=== PATIENT | male | born 1940 | race Caucasian/White ===

== ENCOUNTER 2016-04-13 11:49 | Emergency (ER) | payer MEDICARE, MEDICAID ==
[2016-04-13] MEDS ORDERED: Sodium Chloride 0.9% 1,000 ML IV SCH (12:00)
--- NOTE | 2016-04-13 12:02 | EDM.PDOC ---
ED HPI NEURO - General Stated Complaint: [facility] Time Seen by Provider: 04/13/16 11:50 Source of Information: Reports: Patient, EMS History Limitations: Reports: Altered mental status - History of Present Illness INITIAL COMMENTS - FREE TEXT/NARRATIVE: Patient is a 76 year old male who presents to the E.D. with concerns of having a stroke. Patient was at [facility] being prepared for CT. IV was started and patient became dizzy, pale, and stated he had increased SOB. Patient passed out for a short period of time. 911 was contacted and ambulance arrived transporting patient to the E.D. We have no PMH or current medication list. 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: Other (see below) (none stated) - Related Data Allergies/ADRs: Allergies Allergy/AdvReac Type Severity Reaction Status Date / Time No Known Allergies Allergy Verified 04/13/16 12:07 Home Meds: Home Meds Acetaminophen [Tylenol] 325 mg PO Q4H PRN 04/13/16 [History] Aspirin 81 mg PO DAILY 04/13/16 [History] B Complex With Vitamin C [Vitamin B-Complex with Vit C] 1 each PO DAILY [History] Escitalopram [Lexapro] 10 mg PO DAILY 04/13/16 [History] Fluticasone/Salmeterol [Advair 250-50 Diskus] 1 puff INH BID 04/13/16 [History] Folic Acid 1 mg PO DAILY 04/13/16 [History] Latanoprost [Xalatan] 1 drop OP BEDTIME 04/13/16 [History] Memantine HCl [Namenda] 10 mg PO DAILY 04/13/16 [History] Multivitamin [Multi-Vitamin Daily] 1 tab PO DAILY 04/13/16 [History] Omeprazole Magnesium [Prilosec Otc] 1 tab PO DAILY 04/13/16 [History] atorvaSTATin [Lipitor] 20 mg PO BEDTIME 04/13/16 [History] carBAMazepine [Tegretol] 1 tab PO DAILY 04/13/16 [History] levETIRAcetam [Keppra] 500 mg PO BID 04/13/16 [History] ED ROS GENERAL - Review of Systems Review Of Systems: See Below Constitutional: Reports: no symptoms HEENT: Reports: No symptoms Respiratory: Denies: shortness of breath, cough, sputum Cardiovascular: Reports: Syncope. Denies: Chest pain, Dyspnea on exertion, Lightheadedness, Palpitations GI/Abdominal: Denies: Abdominal pain, Black stool, Bloody stool, Constipation, Diarrhea, Decreased appetite, Distension, Hematemesis, Melena, Nausea, Stool incontinence, Vomiting : Denies: dysuria, incontinence, pain Musculoskeletal: Denies: neck pain, back pain Neurological: Reports: trouble speaking, change in speech (slurred). Denies: dizziness, headache, numbness, tingling ED EXAM, NEURO - Physical Exam Exam: See Below Exam Limited By: Altered mental status General Appearance: alert, WD/WN, no apparent distress Eye Exam: bilateral eye: EOMI, PERRL Ears: hearing grossly normal Nose: normal inspection Throat/Mouth: Normal voice, No airway compromise, Other ( slurred speech.) Head Exam: other (Facial droop left side) Neck: normal inspection, supple. No: carotid bruit (no obvious) Respiratory/Chest: no respiratory distress, lungs clear, normal breath sounds, no accessory muscle use, chest non-tender Cardiovascular: normal peripheral pulses, regular rate, rhythm, no murmur GI/Abdominal: normal bowel sounds, soft, non tender, no organomegaly, no distention Neurological: alert, normal dorsiflexion, normal plantar flexion, no motor/ sensory deficits, other (slurred speech with left-sided facial droop. No weakness noted to the right hand. No arm drift noted. No weakness to the lower extremities. Missing left arm.). No: oriented x 3 (x2) Course - Vital Signs Last Recorded V/S: Last Vital Signs Temp 97.8 F 04/13/16 12:17 Pulse 69 04/13/16 15:55 Resp 14 04/13/16 15:55 BP 112/66 04/13/16 15:55 Pulse Ox 98 04/13/16 15:55 - Orders/Labs/Meds Orders: Active Orders 24 hr Category Date Time Status EKG Documentation Completion [RC] STAT Care 04/13/16 11:54 Active Labs: Laboratory Tests 04/13/16 04/13/16 04/13/16 Range/Units 12:34 12:34 12:34 WBC 8.60 (4.23-9.07) K/mm3 RBC 4.54 L (4.63-6.08) M/mm3 Hgb 13.5 L (13.7-17.5) gm/L Hct 42.9 (40.1-51.0) % MCV 94.5 H (79.0-92.2) fl MCH 29.7 (25.7-32.2) pg MCHC 31.5 L (32.2-35.5) g/dl RDW Std Deviation 46.2 H (35.1-43.9) fL Plt Count 224 (163-337) K/mm3 MPV 9.7 (9.4-12.3) fl Neut % (Auto) 77.8 H (34.0-67.9) % Lymph % (Auto) 11.9 L (21.8-53.1) % [place] % (Auto) 8.5 (5.3-12.2) % Eos % (Auto) 1.4 (0.8-7.0) Baso % (Auto) 0.2 (0.1-1.2) % Neut # 6.69 H (1.78-5.38) K/mm3 Lymph # 1.02 L (1.32-3.57) K/mm3 [place] # 0.73 (0.30-0.82) K/mm3 Eos # 0.12 (0.04-0.54) K/mm3 Baso # 0.02 (0.01-0.08) K/mm3 PT 12.7 (8.0-13.0) SECONDS INR 1.15 APTT (22-36) SECONDS Sodium 139 (136-145) mEq/L Potassium 4.7 (3.5-5.1) mEq/L Chloride 105 (98-107) mEq/L Carbon Dioxide 25 (21-32) mEq/L Anion Gap 13.7 (5-15) BUN 10 (7-18) mg/dL Creatinine 0.9 (0.7-1.3) mg/dL Est Cr Clr Drug Dosing 69.83 mL/min Estimated GFR (MDRD) > 60 (>60) mL/min BUN/Creatinine Ratio 11.1 L (14-18) Glucose 109 (83-115) mg/dL Calcium 9.0 (8.5-10.1) mg/dL Total Bilirubin 0.2 (0.2-1.0) mg/dL AST 28 (15-37) U/L ALT 41 (16-63) U/L Alkaline Phosphatase 150 H (46-116) U/L Troponin I < 0.017 (0.00-0.056) ng/mL C-Reactive Protein 5.8 H* (<1.0) mg/dL Total Protein 7.2 (6.4-8.2) g/dl Albumin 2.8 L (3.4-5.0) g/dl Globulin 4.4 gm/dL Albumin/Globulin Ratio 0.6 L (1-2) TSH 3rd Generation 2.349 (0.358-3.74) uIU/mL Urine Color (Yellow) Urine Appearance (Clear) Urine pH (5.0-8.0) Ur Specific [place] (1.005-1.030) Urine Protein (Negative) Urine Glucose (UA) (Negative) Urine Ketones (Negative) Urine Occult Blood (Negative) Urine Nitrite (Negative) Urine Bilirubin (Negative) Urine Urobilinogen (0.2-1.0) Ur Leukocyte Esterase (Negative) Urine RBC (0-5) /hpf Urine WBC (0-5) /hpf Ur Epithelial Cells (0-5) /hpf Urine Bacteria (FEW) /hpf Urine Mucus (FEW) /hpf Urine Opiates Screen (NEGATIVE) Ur Buprenorphine Scrn (NEGATIVE) Ur Oxycodone Screen (NEGATIVE) Urine Methadone Screen (NEGATIVE) Ur Propoxyphene Screen (NEGATIVE) Ur Barbiturates Screen (NEGATIVE) Ur Tricyclics Screen (NEGATIVE) Ur Phencyclidine Scrn (NEGATIVE) Ur Amphetamine Screen (NEGATIVE) U Methamphetamines Scrn (NEGATIVE) U Benzodiazepines Scrn (NEGATIVE) U Cocaine Metab Screen (NEGATIVE) U Marijuana (THC) Screen (NEGATIVE) Ethyl Alcohol 0.00 (0.00) gm% 04/13/16 04/13/16 04/13/16 Range/Units 12:34 12:57 12:57 WBC (4.23-9.07) K/mm3 RBC (4.63-6.08) M/mm3 Hgb (13.7-17.5) gm/L Hct (40.1-51.0) % MCV (79.0-92.2) fl MCH (25.7-32.2) pg MCHC (32.2-35.5) g/dl RDW Std Deviation (35.1-43.9) fL Plt Count (163-337) K/mm3 MPV (9.4-12.3) fl Neut % (Auto) (34.0-67.9) % Lymph % (Auto) (21.8-53.1) % [place] % (Auto) (5.3-12.2) % Eos % (Auto) (0.8-7.0) Baso % (Auto) (0.1-1.2) % Neut # (1.78-5.38) K/mm3 Lymph # (1.32-3.57) K/mm3 [place] # (0.30-0.82) K/mm3 Eos # (0.04-0.54) K/mm3 Baso # (0.01-0.08) K/mm3 PT (8.0-13.0) SECONDS INR APTT 27 (22-36) SECONDS Sodium (136-145) mEq/L Potassium (3.5-5.1) mEq/L Chloride (98-107) mEq/L Carbon Dioxide (21-32) mEq/L Anion Gap (5-15) BUN (7-18) mg/dL Creatinine (0.7-1.3) mg/dL Est Cr Clr Drug Dosing mL/min Estimated GFR (MDRD) (>60) mL/min BUN/Creatinine Ratio (14-18) Glucose (83-115) mg/dL Calcium (8.5-10.1) mg/dL Total Bilirubin (0.2-1.0) mg/dL AST (15-37) U/L ALT (16-63) U/L Alkaline Phosphatase (46-116) U/L Troponin I (0.00-0.056) ng/mL C-Reactive Protein (<1.0) mg/dL Total Protein (6.4-8.2) g/dl Albumin (3.4-5.0) g/dl Globulin gm/dL Albumin/Globulin Ratio (1-2) TSH 3rd Generation (0.358-3.74) uIU/mL Urine Color Yellow (Yellow) Urine Appearance Clear (Clear) Urine pH 5.5 (5.0-8.0) Ur Specific [place] 1.015 (1.005-1.030) Urine Protein Negative (Negative) Urine Glucose (UA) Negative (Negative) Urine Ketones Negative (Negative) Urine Occult Blood Negative (Negative) Urine Nitrite Negative (Negative) Urine Bilirubin Negative (Negative) Urine Urobilinogen 0.2 (0.2-1.0) Ur Leukocyte Esterase Negative (Negative) Urine RBC Not seen (0-5) /hpf Urine WBC 0-5 (0-5) /hpf Ur Epithelial Cells Not seen (0-5) /hpf Urine Bacteria Not seen (FEW) /hpf Urine Mucus Few (FEW) /hpf Urine Opiates Screen Negative (NEGATIVE) Ur Buprenorphine Scrn Negative (NEGATIVE) Ur Oxycodone Screen Negative (NEGATIVE) Urine Methadone Screen Negative (NEGATIVE) Ur Propoxyphene Screen Negative (NEGATIVE) Ur Barbiturates Screen Negative (NEGATIVE) Ur Tricyclics Screen Negative (NEGATIVE) Ur Phencyclidine Scrn Negative (NEGATIVE) Ur Amphetamine Screen Negative (NEGATIVE) U Methamphetamines Scrn Negative (NEGATIVE) U Benzodiazepines Scrn Negative (NEGATIVE) U Cocaine Metab Screen Negative (NEGATIVE) U Marijuana (THC) Screen Negative (NEGATIVE) Ethyl Alcohol (0.00) gm% Meds: Medications Discontinued Medications Generic Name Dose Route Start Last Admin Trade Name Freq PRN Reason Stop Dose Admin Sodium Chloride 1,000 mls @ 75 mls/hr 04/13/16 12:00 04/13/16 13:02 Normal Saline IV 75 mls/hr ASDIRECTED [facility] Administration - Re-Assessments/Exams Free Text/Narrative Re-Assessment/Exam: Stroke alert was called. Patient had a syncopal episode while IV was being started at [facility] prior to obtaining CT scan. Patient was transported to the ED via ambulance. Upon arrival patient is alert oriented to person and year. He has no complaints at this time. Patient has left sided lip droop with no loss of nasolabial fold, patient has no teeth, questionable slurred speech, with no weakness noted to the right upper extremity or lower extremities bilaterally. CT of the head without contrast was obtained. Initial labs include CBC, chem 14 , troponin, CRP, TSH, PT/INR, PTT, EKG, one view chest x-ray, serum EtOH, UA, and urine drug tox. I have asked nursing staff to be contact [facility] to obtain further history and why he was having CT obtained. Patient is a poor historian and does not recall events prior and after event. We have no PMH or current medication list. 04/13/16 12:[address] impression: No acute intracranial abnormality is identified. EKG revealed sinus rhythm at a rate of [address] changes noted. Labs reviewed. WBC WNL, CMP essentially normal, CRP 5.8 unknown cause, troponin wnl, TSH WNL. 04/13/16 12:33 Reassessment, patient sitting up eyes are open any is talking more clearly. Still does not recall events leading up to him be admitted to the ED. Denies any complaints at this time. Denies any history of TIA or strokelike symptoms. States he has a history of passing out. Nursing staff was able to speak to the page technician at [facility]. Patient was having a CT of his chest with IV contrast per routine followup of a pulmonary nodule. IV was started and the patient became dizzy, pale, and stated he had increased SOB. Patient passed out for a short period of time. He does have a history of seizures and take keppra. Unclear if this was seizure related. Patient has no trauma to tongue (no teeth present) and is not incontinent to urine/stool. Appears recent event maybe associated to vaso-vagal syncope. Discussed with Dr. Chang and he agrees. 04/13/16 12:46 CT of the head without contrast impression: No acute intracranial abnormality is identified. X-ray of the chest nothing acute is identified per portable chest x-ray. 04/13/16 13:21 Reassessment, patient is sitting up in bed. Facial droop left lip. Patient has no upper teeth. No loss of nasolabial fold to left side noted. Patient is hungry. Will get a food tray for the patient. 04/13/16 15:32 UA was negative for infection. Urine drug toxicology is negative. Patient is wishing to be discharged home will get patient back up and see how he does. Discharge instructions as documented for seizure and vasovagal episodes. Departure - Departure Time of Disposition: 15:32 Disposition: Home, Self-Care 01 Condition: good Clinical Impression: Vaso vagal episode, Seizure disorder, Elevated C-reactive protein (CRP) Anemia Qualifiers: Anemia type: unspecified type Qualified Code(s): D64.9 - Anemia, unspecified Instructions: Seizure, Adult, [id number] Referrals: Ankit Caldera MD [Primary Care Provider] - Forms: ED Department Discharge Additional Instructions: Cause of recent maybe associated to vasovagal episode or seizure. Continue taking all home medications as prescribed. Please followup with PCP in the next 3 to 5 days for further evaluation. Return to the E.D. as needed for SOB, CP, N/V, or any neurological deficits. - My Orders Last 24 Hours: My Active Orders 04/13/16 11:54 EKG Documentation Completion [RC] STAT - Assessment/Plan Last 24 Hours: My Active Orders 04/13/16 11:54 EKG Documentation Completion [RC] STAT
--- NOTE | 2016-04-13 12:22 | CT ---
Head CT Technique: Multiple axial sections through the brain were obtained. Intravenous contrast was not utilized. Comparison: Previous head CT study of 07/11/10 is available. Findings: Ventricles along with basal cisterns and sulci over the convexities are moderately prominent. Atrophy includes the cerebellum. Diminished density is seen within portions of the periventricular white matter compatible with small vessel ischemic demyelination change. No other abnormal parenchymal densities are seen. No evidence of intracranial hemorrhage. No midline shift or mass effect is seen. Bone window settings were reviewed which shows the visualized mastoid sinuses and middle ear cavities to appear clear. Paranasal sinuses that are seen also appears clear. No acute calvarial abnormality is identified. Impression: 1. Senescent change as described above. 2. No acute intracranial abnormality is identified. Diagnostic code #2
--- NOTE | 2016-04-13 12:43 | CR ---
Chest: Portable view of the chest was obtained. Comparison: Previous chest x-ray of 07/24/10. Heart size at the upper limits of normal. Mild tortuosity of the thoracic aorta is seen. Lungs are clear. Old bilateral rib fractures are seen which appear to be healed. Bony structures are osteopenic. Chronic left acromioclavicular separation is noted. Impression: 1. Incidental findings. Nothing acute is identified on portable chest x-ray. Diagnostic code #2
[2016-04-13 17:36] VITALS: BP 112/66
== END 2016-04-13 15:55 | disposition home or self-care (01) ==
LOC: JD.ED 11:49 → SUPCPDRO 11:49 → JD.ED 15:55
DX: Z79.82 Long term (current) use of aspirin (principal); G40.909 Epilepsy, unspecified, not intractable, without status epilepticus; R55 Syncope and collapse; D64.9 Anemia, unspecified; R79.82 Elevated C-reactive protein (CRP); Z79.899 Other long term (current) drug therapy
CPT/HCPCS: 36415; 70450; 71010; 80053; 80306; 81001; 84443; 84484; 85025; 85610; 85730; 86140; 93005; 96360; 96361; 99285; G0480; J7040

== ENCOUNTER 2017-03-23 04:35 | Emergency (ER) | payer MEDICARE, MEDICAID ==
[2017-03-23 04:45] VITALS: BP 125/81
--- NOTE | 2017-03-23 05:33 | EDM.PDOC ---
ED HPI GENERAL MEDICAL PROBLEM - General Chief Complaint: Abdominal Pain Stated Complaint: [facility] Time Seen by Provider: 03/23/17 04:51 Source of Information: Reports: Patient History Limitations: Reports: Altered Mental Status - History of Present Illness INITIAL COMMENTS - FREE TEXT/NARRATIVE: The patient states that he has had left lower quadrant abdominal pain on and off for the past week. He is unable to describe its character. He denies having back or flank pain. No recent fever. No recent dysuria. No recent dyspnea. No prior similar symptoms. The patient states that he is not experiencing any pain at this time. Here in the ED, the patient's oxygen saturation is noted to be 88% on room air. Patient indicates that he has had this before, and was prescribed oxygen, but that he did not like to wear it. The patient's PCP is Dr. Shin. Left Abdomen Pain Score (Numeric/FACES): 5 - Related Data Allergies Allergy/AdvReac Type Severity Reaction Status Date / Time Penicillins Allergy Cannot Verified 03/23/17 05:11 Remember vancomycin Allergy Cannot Verified 03/23/17 05:11 Remember Home Meds: Home Meds Aspirin 81 mg PO DAILY 04/13/16 [History] Folic Acid 1 mg PO DAILY 04/13/16 [History] Memantine HCl [Namenda] 10 mg PO BID 04/13/16 [History] Multivitamin [Multi-Vitamin Daily] 1 tab PO DAILY 04/13/16 [History] Omeprazole Magnesium [Prilosec Otc] 1 tab PO DAILY 04/13/16 [History] atorvaSTATin [Lipitor] 20 mg PO BEDTIME 04/13/16 [History] carBAMazepine [Tegretol] 300 tab PO BID 04/13/16 [History] levETIRAcetam [Keppra] 500 mg PO BID 04/13/16 [History] Escitalopram [Lexapro] 10 mg PO DAILY 03/23/17 [History] Past Medical History HEENT History: Reports: Glaucoma Cardiovascular History: Reports: Aneurysm (AAA), CAD, High Cholesterol Respiratory History: Reports: COPD Gastrointestinal History: Reports: Diverticulosis, GERD Neurological History: Reports: Alzheimers Disease, Brain Injury, Seizure Psychiatric History: Reports: Addiction - Past Surgical History Cardiovascular Surgical History: Reports: Other (See Below) (Aortoiliac stent) Musculoskeletal Surgical History: Reports: Other (See Below) (Left midhumerus amputation) Social & Family History - Family History Family Medical History: Noncontributory - Tobacco Use Smoking Status *Q: Never Smoker Month Tobacco Last Used: 03/23 Second Hand Smoke Exposure: No - Caffeine Use Caffeine Use: Reports: None - Alcohol Use Alcohol Use History: Yes - Recreational Drug Use Recreational Drug Use: No - Living Situation & Occupation Living situation: Reports: Single, Alone Occupation: Retired ED ROS GENERAL - Review of Systems Review Of Systems: ROS reveals no pertinent complaints other than HPI. ED EXAM, GI/ABD - Physical Exam Exam: See Below Exam Limited By: No Limitations General Appearance: Alert, WD/WN, No Apparent Distress Eyes: Bilateral: Normal Appearance, EOMI Ears: Normal External Exam, Hearing Grossly Normal Nose: Normal Inspection, No Blood Throat/Mouth: Normal Inspection, Normal Lips, Normal Voice, No Airway Compromise Head: Atraumatic, Normocephalic Neck: Normal Inspection, Full Range of Motion Respiratory/Chest: No Respiratory Distress, Lungs Clear, Normal Breath Sounds, No Accessory Muscle Use Cardiovascular: Normal Peripheral Pulses, Regular Rate, Rhythm, No Gallop, No JVD, No Murmur, No Rub GI/Abdominal Exam: Normal Bowel Sounds, Soft, No Organomegaly, No Distention, No Abnormal Bruit, No Mass, Pelvis Stable, Tender (Left lower quadrant only. Nontender elsewhere.), Other (The patient denies abdominal pain when the abdomen is not being palpated) (Male) Exam: Deferred Rectal (Males) Exam: Deferred Back Exam: Normal Inspection, Full Range of Motion, NT Extremities: Normal Range of Motion, No Pedal Edema, Normal Capillary Refill, Other (Left midhumerus application) Neurological: Alert, No Motor/Sensory Deficits Psychiatric: Normal Affect Skin Exam: Warm, Dry, Intact, Normal Color, No Rash Course - Vital Signs Last Recorded V/S: Last Vital Signs Temp 36.7 C 03/23/17 04:37 Pulse 119 H 03/23/17 04:37 Resp 27 H 03/23/17 04:37 BP 125/81 03/23/17 04:37 Pulse Ox 87 L 03/23/17 04:37 - Orders/Labs/Meds Orders: Active Orders 24 hr Category Date Time Status Sodium Chloride 0.9% [Normal Saline] 1,000 ml Med 03/23/17 05:45 Active IV ASDIRECTED Medication Orders Sodium Chloride (Normal Saline) 1,000 mls @ 150 mls/hr IV ASDIRECTED [place] Last Admin: 03/23/17 06:00 Dose: 150 mls/hr Labs: Laboratory Tests 03/23/17 03/23/17 03/23/17 Range/Units 06:01 06:01 06:25 WBC 13.88 H (4.23-9.07) K/mm3 RBC 4.50 L (4.63-6.08) M/mm3 Hgb 14.2 (13.7-17.5) gm/L Hct 44.0 (40.1-51.0) % MCV 97.8 H (79.0-92.2) fl MCH 31.6 (25.7-32.2) pg MCHC 32.3 (32.2-35.5) g/dl RDW Std Deviation 49.2 H (35.1-43.9) fL Plt Count 167 (163-337) K/mm3 MPV 10.6 (9.4-12.3) fl Neutrophils % (Manual) 66 H (40-60) % Band Neutrophils % 24 H (0-10) % Lymphocytes % (Manual) 7 L (20-40) % Atypical Lymphs % 0 % Monocytes % (Manual) 3 (2-10) % Eosinophils % (Manual) 0 L (0.8-7.0) % Basophils % (Manual) 0 L (0.2-1.2) Platelet Estimate Adequate RBC Morph Comment Normal Sodium 145 (136-145) mEq/L Potassium 4.0 (3.5-5.1) mEq/L Chloride 113 H (98-107) mEq/L Carbon Dioxide 23 (21-32) mEq/L Anion Gap 13.0 (5-15) BUN 12 (7-18) mg/dL Creatinine 1.2 (0.7-1.3) mg/dL Est Cr Clr Drug Dosing 51.55 mL/min Estimated GFR (MDRD) 59 (>60) mL/min BUN/Creatinine Ratio 10.0 L (14-18) Glucose 121 H (83-115) mg/dL Calcium 8.6 (8.5-10.1) mg/dL Total Bilirubin 0.4 (0.2-1.0) mg/dL AST 25 (15-37) U/L ALT 33 (16-63) U/L Alkaline Phosphatase 113 (46-116) U/L Total Protein 6.5 (6.4-8.2) g/dl Albumin 3.0 L (3.4-5.0) g/dl Globulin 3.5 gm/dL Albumin/Globulin Ratio 0.9 L (1-2) Lipase 69 L (73-393) U/L Urine Color Yellow (Yellow) Urine Appearance Clear (Clear) Urine pH 6.0 (5.0-8.0) Ur Specific [place] > or = 1.030 (1.005-1.030) Urine Protein Trace H (Negative) Urine Glucose (UA) Negative (Negative) Urine Ketones Negative (Negative) Urine Occult Blood Negative (Negative) Urine Nitrite Negative (Negative) Urine Bilirubin Negative (Negative) Urine Urobilinogen 0.2 (0.2-1.0) Ur Leukocyte Esterase Negative (Negative) Urine RBC Not seen (0-5) /hpf Urine WBC 0-5 (0-5) /hpf Ur Epithelial Cells 0-5 (0-5) /hpf Urine Bacteria Few (FEW) /hpf Urine Mucus Many H (FEW) /hpf Meds: Medications Generic Name Dose Route Start Last Admin Trade Name Freq PRN Reason Stop Dose Admin Sodium Chloride 1,000 mls @ 150 mls/hr 03/23/17 05:45 03/23/17 06:00 Normal Saline IV 150 mls/hr ASDIRECTED [place] Administration Discontinued Medications Generic Name Dose Route Start Last Admin Trade Name Freq PRN Reason Stop Dose Admin Diatrizoate Meglum/Diatrizoate Sod 90 ml 03/23/17 06:57 03/23/17 08:13 Gastrografin 37% PO 03/23/17 06:58 90 ml ONETIME ONE Administration Iopamidol 100 ml 03/23/17 06:57 03/23/17 08:13 [id number] (76%) IVPUSH 03/23/17 06:58 100 ml ONETIME ONE Administration - Re-Assessments/Exams Free Text/Narrative Re-Assessment/Exam: 03/23/17 05:33 The patient has mild tenderness to palpation of the left lower quadrant, however , is pain-free when the abdomen is not being palpated. He also denies nausea at this time. I have therefore not ordered any pain medication or antiemetics at this time, however, should the patient's condition change, I can reassess. 03/23/17 09:15 CT of the abdomen and pelvis with oral and IV contrast is read by Dr. Ramirez as: 1. Parenchymal density within the left base most likely due to combination of atelectasis and fibrosis although difficult to exclude small area of pneumonia if patient has correlating symptoms. 2. Aortoiliac stent within an abdominal aortic aneurysm. No contrast is seen to extravasate outside stent into the aneurysm. 3. Diverticulosis without diverticulitis. 4. Other incidental findings. 03/23/17 09:22 Test results discussed with one of the patient's caregivers. Today's workup is remarkable for a WBC count elevated at 13.85 with 24% bandemia, however, no infection was found on today's workup, and no expiration for the patient's left lower quadrant abdominal pain. I'm recommending [id number] Tylenol or ibuprofen as needed for discomfort, however, I would also like the patient to follow-up with his PCP, Dr. Shin, this coming week. The patient's caregiver has agreed. Departure - Departure Time of Disposition: 09:23 Disposition: Home, Self-Care 01 Condition: Good Clinical Impression: Left lower quadrant abdominal pain of unknown etiology, Leukocytosis - Discharge Information Referrals: Phil Shin MD [Primary Care Provider] - Forms: ED Department Discharge Additional Instructions: Mr. Jenkins was seen in the ER for lower left abdominal pain. Workup in the ER included blood work, a urinalysis, and a CT scan of his abdomen and pelvis. His WBC count was elevated at 13.88, with 24% bandemia. This suggests an infection, however, no infection was found. The CT scan of his abdomen and pelvis was, for the most part, unremarkable. We recommend he be given [id number] Tylenol or ibuprofen as needed for discomfort. He should follow-up with his PCP, Dr. Shin, this coming week. If any other problems, please do not hesitate to return Mr. Jenkins to the ER. - My Orders Last 24 Hours: My Active Orders 03/23/17 05:45 Sodium Chloride 0.9% [Normal Saline] 1,000 ml IV ASDIRECTED - Assessment/Plan Last 24 Hours: My Active Orders 03/23/17 05:45 Sodium Chloride 0.9% [Normal Saline] 1,000 ml IV ASDIRECTED
[2017-03-23] MEDS: Sodium Chloride 0.9% 1,000 ML IV SCH (06:00)
[2017-03-23] MEDS: Diatrizoate Meglumine/Diatrizoate Sodium 37% 120 ML Bottle PO ONE (08:13)
[2017-03-23] MEDS: Iopamidol 755 Mg/ML 100 ML Bottle IVPUSH ONE (08:13)
--- NOTE | 2017-03-23 09:13 | CT ---
CT abdomen and pelvis Technique: Multiple axial sections were obtained from above the dome of the diaphragm inferiorly through the pubic symphysis. Intravenous and oral contrast was utilized. Delayed images were also obtained through the abdomen and pelvis. Comparison: Prior CT chest and abdomen exam of 06/21/10. Findings: Visualized lung bases shows patchy increased density within the left base. Findings may represent a combination of atelectasis and fibrosis although difficult to completely exclude a pneumonia. Nodular areas of pleural thickening are seen within the diaphragmatic pleura on the right side. Liver shows no focal parenchymal abnormality. Spleen appears within normal limits. Adrenal glands show no nodule. Gallbladder contains no calcified gallstones. Several cysts are seen within the right kidney which appear stable from previous exam. Largest cyst measures about 5.2 cm in size. Pancreas is within normal limits. Aorta shows an aneurysm. Aortoiliac stent is seen within the aneurysm. No extravasation of contrast is seen outside the stent into the aneurysm. Diverticulosis is noted within the sigmoid colon without diverticulitis. No pelvic mass or adenopathy is seen. Appendix is seen which is normal. Delayed images shows contrast within the ureters without obstruction as well as contrast within the bladder. No bowel dilatation is seen. Bone window settings were reviewed which shows disc space narrowing and vacuum phenomena at L4-L5. Mild scattered endplate osteophytes are seen within the spine. Impression: 1. Parenchymal density within the left base most likely due to combination of atelectasis and fibrosis although difficult to exclude small area of pneumonia if patient has correlating symptoms. 2. Aortoiliac stent within an abdominal aortic aneurysm. No contrast is seen to extravasate outside the stent into the aneurysm. 3. Diverticulosis without diverticulitis. 4. Other incidental findings. Diagnostic code #3
== END 2017-03-23 09:45 | disposition home or self-care (01) ==
LOC: JD.ED 04:35
DX: R10.32 Left lower quadrant pain (principal); D72.829 Elevated white blood cell count, unspecified; Z88.0 Allergy status to penicillin; Z88.1 Allergy status to other antibiotic agents; Z79.82 Long term (current) use of aspirin; Z79.899 Other long term (current) drug therapy
CPT/HCPCS: 36415; 74177; 80053; 81001; 83690; 85025; 96360; 96361; 99285; J7040; Q9963; Q9967

== ENCOUNTER 2017-10-01 19:55 | Emergency (ER) | payer MEDICARE, MEDICAID ==
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
[2017-10-01 22:09] VITALS: BP 136/57
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
--- NOTE | 2017-10-03 08:07 | CR ---
Chest: AP and lateral views of the chest were obtained. Comparison: Prior chest x-ray of 04/13/16. Heart size at the upper limits of normal. Tortuous thoracic aorta is seen. Slight scarring is noted within the left upper chest. No acute parenchymal change is seen. Diaphragms are flattened on the lateral view suggesting emphysematous change. Scattered degenerative change is noted within the spine. Stent is noted within the abdominal aorta. Old bilateral rib fractures are seen. Impression: 1. Probable emphysematous change. 2. Other incidental findings. Nothing acute is suspected. Diagnostic code #2
== END 2017-10-01 22:05 | disposition home or self-care (01) ==
LOC: JD.ED 19:55
DX: R55 Syncope and collapse (principal); J44.9 Chronic obstructive pulmonary disease, unspecified; E78.00 Pure hypercholesterolemia, unspecified; Z88.0 Allergy status to penicillin; Z88.1 Allergy status to other antibiotic agents; Z79.899 Other long term (current) drug therapy; Z79.82 Long term (current) use of aspirin; Z87.891 Personal history of nicotine dependence
CPT/HCPCS: 36415; 71046; 71046-26; 80053; 84484; 85025; 93005; 99283; 99285-25

== ENCOUNTER 2017-10-02 14:34 | Inpatient (IN) | payer MEDICARE, MEDICAID ==
[2017-10-02] MEDS ORDERED: Sodium Chloride 0.9% 10 ML Syringe FLUSH PRN (14:56)
[2017-10-02] MEDS ORDERED: Sodium Chloride 0.9% 1,000 ML IV SCH (15:00)
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
[2017-10-02] MEDS ORDERED: Ketorolac 30 MG/ML SDV IVPUSH ONE (16:37)
[2017-10-02] MEDS ORDERED: HYDROmorphone 0.5 MG/0.5 ML SYRINGE IVPUSH ONE (16:37)
[2017-10-02] MEDS ORDERED: Docusate Sodium 100 MG Cap PO PRN (19:53)
[2017-10-02] MEDS ORDERED: Ondansetron 4 MG Tab.DIS PO PRN (19:53)
[2017-10-02] MEDS ORDERED: Polyethylene Glycol 3350 Powder 17 GM Packet PO PRN (19:53)
[2017-10-02] MEDS ORDERED: Bisacodyl 5 MG Tab PO PRN (19:53)
[2017-10-02] MEDS ORDERED: Ondansetron 4 MG/2 ML SDV IV PRN (19:53)
[2017-10-02] MEDS ORDERED: Acetaminophen 325 MG Tab PO PRN (19:53)
[2017-10-02] MEDS ORDERED: Magnesium Hydroxide 400 MG/5 ML Susp 30 ML Cup PO PRN (19:53)
[2017-10-02] MEDS ORDERED: Albuterol 0.083% 2.5 MG/3 ML Neb Soln NEB PRN (19:53)
[2017-10-02] MEDS ORDERED: Albuterol/Ipratropium 3.0-0.5 MG/3 ML Neb Soln NEB PRN (19:53)
[2017-10-02] MEDS ORDERED: LORazepam 2 MG/ML SDV IVPUSH PRN (20:06)
[2017-10-02] MEDS: LORazepam 2 MG/ML SDV IVPUSH PRN (20:43)
[2017-10-02] MEDS: levETIRAcetam 500 MG Tab PO SCH (20:54)
[2017-10-02] MEDS: Simvastatin 20 MG Tab PO SCH (20:54)
[2017-10-02] MEDS: Latanoprost 0.005% Ophth Soln 2.5 ML Bottle EYEBOTH SCH (20:55)
[2017-10-02] MEDS: carBAMazepine 200 MG Tab PO SCH (20:55)
[2017-10-02] MEDS: Memantine 10 MG Tab PO SCH (20:55)
[2017-10-02] MEDS: Formoterol/Mometasone 200-5 MCG 8.8 GM Inhaler IH SCH (21:34)
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
[2017-10-03] MEDS: LORazepam 2 MG/ML SDV IVPUSH PRN ×2 (00:45→04:50)
[2017-10-03] MEDS: Ketorolac 30 MG/ML SDV IV PRN ×3 (00:56→18:10)
[2017-10-03] MEDS: Formoterol/Mometasone 200-5 MCG 8.8 GM Inhaler IH SCH ×2 (08:49→20:45)
[2017-10-03] MEDS ORDERED: Pantoprazole 40 MG Vial IVPUSH SCH (09:00)
[2017-10-03] MEDS: Thiamine 100 MG Tab PO SCH (09:09)
[2017-10-03] MEDS: levETIRAcetam 500 MG Tab PO SCH ×2 (09:09→20:04)
[2017-10-03] MEDS: Enoxaparin 40 MG/0.4 ML Syringe SUBCUT SCH (09:09)
[2017-10-03] MEDS: Multivitamins,Therapeutic Tab PO SCH (09:09)
[2017-10-03] MEDS: carBAMazepine 200 MG Tab PO SCH ×2 (09:10→20:04)
[2017-10-03] MEDS: Folic Acid 1 MG Tab PO SCH (09:10)
[2017-10-03] MEDS: Aspirin 81 MG Tab.Chew PO SCH (09:10)
[2017-10-03] MEDS: Citalopram 20 MG Tab PO SCH (09:10)
[2017-10-03] MEDS: Memantine 10 MG Tab PO SCH ×2 (09:10→20:04)
--- NOTE | 2017-10-03 12:13 | CT ---
CT chest Technique: Multiple axial sections were obtained from above the lung apices inferiorly through the lung bases. Intravenous contrast was not utilized. Comparison: Prior chest CT exam of 10/08/12. Findings: New nodule is identified within the left upper chest measuring about 1.0 cm showing slightly spiculated margins. Mild interstitial change is seen around this lesion. Other nodules within the chest are stable. Mild areas of pleural thickening are seen within the left chest which appear stable. Emphysematous changes are noted. Abdominal aortic aneurysm is seen which shows evidence of a stent. Several cysts are noted within the right kidney. No pericardial thickening is seen. Mild coronary artery calcification is noted. Mediastinum and hilar regions show no adenopathy or mass. No axillary adenopathy is seen. Bone window settings were reviewed which show scattered degenerative change within the spine. Multiple old healed right-sided rib fractures are noted. Acute fractures with slight displacement are seen within the left eighth and ninth ribs. No pneumothorax is seen. Impression: 1. Nodule within the left upper chest which is an interval change from prior study showing slight spiculation. Difficult to exclude early neoplasm. Recommend repeat study in 3-4 months to see if this continues to increase in size. Mild interstitial change within the left upper chest is noted and also represents an interval change from prior exam. 2. Other nodules within both sides of the chest are stable from prior chest CT. 3. Two acute rib fracture showing slight displacement are noted within the left eighth and ninth ribs. Diagnostic code #9 I agree with preliminary report issued by [facility] (report finalized on 10/02/17, 4:34 PM Central Time)
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
[2017-10-03] MEDS: Simvastatin 20 MG Tab PO SCH (20:04)
[2017-10-03] MEDS: Latanoprost 0.005% Ophth Soln 2.5 ML Bottle EYEBOTH SCH (20:04)
[2017-10-03] MEDS ORDERED: HYDROmorphone 1 MG/ML Syringe IVPUSH PRN (21:46)
[2017-10-03] MEDS: Acetaminophen/oxyCODONE 325-5 MG Tab PO PRN (21:58)
[2017-10-03] MEDS ORDERED: Benzonatate 100 MG Cap PO ONE (22:00)
[2017-10-03] MEDS ORDERED: Magnesium Sulfate/Water 100 ML IV ONE (22:00)
[2017-10-03] MEDS: Benzonatate 100 MG Cap PO PRN (22:04)
[2017-10-04] MEDS: Acetaminophen/oxyCODONE 325-5 MG Tab PO PRN ×3 (01:57→14:34)
[2017-10-04] MEDS: Ketorolac 30 MG/ML SDV IV PRN (05:25)
[2017-10-04] MEDS: Memantine 10 MG Tab PO SCH ×2 (08:43→20:02)
[2017-10-04] MEDS: Multivitamins,Therapeutic Tab PO SCH (08:44)
[2017-10-04] MEDS: Pantoprazole 40 MG Tab.CR PO SCH (08:44)
[2017-10-04] MEDS: Thiamine 100 MG Tab PO SCH (08:44)
[2017-10-04] MEDS: levETIRAcetam 500 MG Tab PO SCH ×2 (08:44→20:02)
[2017-10-04] MEDS: Folic Acid 1 MG Tab PO SCH (08:44)
[2017-10-04] MEDS: Citalopram 20 MG Tab PO SCH (08:44)
[2017-10-04] MEDS: carBAMazepine 200 MG Tab PO SCH ×2 (08:44→20:02)
[2017-10-04] MEDS: Benzonatate 100 MG Cap PO PRN ×2 (08:45→22:35)
[2017-10-04] MEDS: Aspirin 81 MG Tab.Chew PO SCH (08:45)
[2017-10-04] MEDS: Enoxaparin 40 MG/0.4 ML Syringe SUBCUT SCH (08:47)
[2017-10-04] MEDS: Formoterol/Mometasone 200-5 MCG 8.8 GM Inhaler IH SCH ×2 (08:55→20:00)
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
[2017-10-04] MEDS: LORazepam 2 MG/ML SDV IVPUSH PRN (19:48)
[2017-10-04] MEDS: Simvastatin 20 MG Tab PO SCH (20:02)
[2017-10-04] MEDS: Latanoprost 0.005% Ophth Soln 2.5 ML Bottle EYEBOTH SCH (20:02)
[2017-10-05] MEDS: Acetaminophen/oxyCODONE 325-5 MG Tab PO PRN ×3 (00:20→09:53)
[2017-10-05] MEDS: Ketorolac 30 MG/ML SDV IV PRN (04:11)
[2017-10-05] MEDS: Formoterol/Mometasone 200-5 MCG 8.8 GM Inhaler IH SCH (08:30)
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
[2017-10-05] MEDS: carBAMazepine 200 MG Tab PO SCH (09:52)
[2017-10-05] MEDS: levETIRAcetam 500 MG Tab PO SCH (09:52)
[2017-10-05] MEDS: Multivitamins,Therapeutic Tab PO SCH (09:52)
[2017-10-05] MEDS: Aspirin 81 MG Tab.Chew PO SCH (09:52)
[2017-10-05] MEDS: Pantoprazole 40 MG Tab.CR PO SCH (09:52)
[2017-10-05] MEDS: Thiamine 100 MG Tab PO SCH (09:52)
[2017-10-05] MEDS: Folic Acid 1 MG Tab PO SCH (09:53)
[2017-10-05] MEDS: Enoxaparin 40 MG/0.4 ML Syringe SUBCUT SCH (09:53)
[2017-10-05] MEDS: Memantine 10 MG Tab PO SCH (09:53)
[2017-10-05] MEDS: Citalopram 20 MG Tab PO SCH (09:53)
[2017-10-05 10:04] VITALS: BP 104/64
[2017-10-05] MEDS: LORazepam 2 MG/ML SDV IVPUSH PRN (10:22)
== END 2017-10-05 11:40 | DRG 185 ==
LOC: JD.ED 14:34 → JD.MS 16:56
PROVIDERS: ADMIT Internal Medicine; ATTEND Internal Medicine
DX: S22.42XA Multiple fractures of ribs, left side, initial encounter for closed fracture (principal); W18.30XA Fall on same level, unspecified, initial encounter; I25.10 Atherosclerotic heart disease of native coronary artery without angina pectoris; E78.00 Pure hypercholesterolemia, unspecified; J44.9 Chronic obstructive pulmonary disease, unspecified; K21.9 Gastro-esophageal reflux disease without esophagitis; G30.9 Alzheimer's disease, unspecified; F02.80 Dementia in other diseases classified elsewhere, unspecified severity, without behavioral disturbance, psychotic disturbance, mood disturbance, and anxiety; R56.9 Unspecified convulsions; R09.02 Hypoxemia; H40.9 Unspecified glaucoma; E78.5 Hyperlipidemia, unspecified; G40.909 Epilepsy, unspecified, not intractable, without status epilepticus; I72.9 Aneurysm of unspecified site; K57.90 Diverticulosis of intestine, part unspecified, without perforation or abscess without bleeding; R91.1 Solitary pulmonary nodule; R79.82 Elevated C-reactive protein (CRP); F41.9 Anxiety disorder, unspecified; Z87.820 Personal history of traumatic brain injury; Z87.891 Personal history of nicotine dependence; R06.02 Shortness of breath; R07.9 Chest pain, unspecified; R07.81 Pleurodynia; Z91.19 Patient's noncompliance with other medical treatment and regimen; Z88.1 Allergy status to other antibiotic agents; Z88.0 Allergy status to penicillin; Z79.899 Other long term (current) drug therapy; Z79.82 Long term (current) use of aspirin; Z89.222 Acquired absence of left upper limb above elbow
CPT/HCPCS: 36415; 71250; 80053; 84484; 85025; 96360; 99285; J7040; J7050; 80048; 83735; 86140; 87070; 87205; 92507-GN; 94640; 94664; 94760; 94761; 97110-GO; 97110-GP; 97112-GP; 97116-GP; 97162-GP; 97166-GO; 97530-GO; A9270-GY; C9113; J1170; J1650; J1885; J2060; J3475

== ENCOUNTER 2019-12-13 22:54 | Emergency (ER) | payer MEDICARE, MEDICAID ==
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
[2019-12-13] MEDS ORDERED: Lactated Ringers 500 ML IV ONE ×2 (23:08→23:09)
[2019-12-14] MEDS ORDERED: Magnesium Sulfate/Water 2 GM/50 ML Premix Bag IV ONE (00:37)
[2019-12-14] MEDS ORDERED: Lactated Ringers 1,000 ML IV SCH ×2 (00:45→01:45)
[2019-12-14] MEDS ORDERED: Magnesium Sulfate/Water 2 GM/50 ML BAG IV ONE (00:45)
[2019-12-14] MEDS ORDERED: cefTRIAXone 2 GM in Sodium Chloride 0.9% 100 ML IV ONE (01:53)
[2019-12-14] MEDS ORDERED: Doxycycline 100 MG in Sodium Chloride 0.9% 100 ML IV ONE (01:55)
[2019-12-14] MEDS ORDERED: Sodium Chloride 0.9% 500 ML IV SCH (02:00)
[2019-12-14 02:38] VITALS: BP 130/60; PULSE 81
--- NOTE | 2019-12-15 10:00 | CR ---
PROCEDURE INFORMATION: Exam: XR Chest, 1 View Exam date and time: 12/13/2019 11:18 PM Age: 79 years old Clinical indication: Chest pain; Patient HX: AMS, cp pain, head pain, possible fall earlier today. Prior reports scanned in for review TECHNIQUE: Imaging protocol: XR of the chest Views: 1 view. COMPARISON: CT Chest wo Cont 10/02/2017 3:01 PM FINDINGS: Lungs: Heterogeneous ill-defined hyperdensity within the lateral aspect of the left lung could represent pneumonitis or scarring. Right lung is clear. Pleural space: Costophrenic angles are sharp. No pneumothorax. Heart/Mediastinum: Unremarkable. No cardiomegaly. Bones/joints: Healed bilateral rib fractures.There is age-appropriate spondylosis of the spine. Abdominal aortic stent graft. IMPRESSION: Heterogeneous ill-defined hyperdensity within the lateral aspect of the left lung could represent pneumonitis or scarring. Thank you for allowing us to participate in the care of your patient. Dictated and Authenticated by: Juan Aaron MD 12/14/2019 1:16 AM Central Time ([place] & [place]) SUZE
--- NOTE | 2019-12-15 10:01 | CT ---
PROCEDURE INFORMATION: Exam: CT Head Without Contrast Exam date and time: 12/13/2019 11:16 PM Age: 79 years old Clinical indication: Injury or trauma; Other: AMS, possible fall earlier today; Blunt trauma (contusions or hematomas); Consciousness not specified; Injury date: 12/13/2019; Patient HX: Prior reports scanned in for review. PT AMS possible fall earlier today and complains of head pain TECHNIQUE: Imaging protocol: Computed tomography of the head without contrast. COMPARISON: CT Head wo Cont 04/13/2016 12:04 PM FINDINGS: Brain: Moderate cortical atrophy is present. There is no sign of acute intracranial hemorrhage or cerebral edema. There is no intracranial mass effect or midline shift. There is moderate supratentorial white matter lucency, consistent with chronic microvascular ischemic change. Cerebral ventricles: No hydrocephalus. Bones/joints: Skull base and overlying calvarium are intact. No lytic or osteosclerotic lesions. Paranasal sinuses: Visualized sinuses are unremarkable. No fluid levels. Mastoid air cells: Visualized mastoid air cells are well aerated. Soft tissues: Unremarkable. IMPRESSION: 1. No sign of acute intracranial injury or skull fracture. 2. Senescent changes of the brain are present. Thank you for allowing us to participate in the care of your patient. Dictated and Authenticated by: Juan Aaron MD 12/14/2019 1:12 AM Central Time ([place] & [place]) [place]
== END 2019-12-14 07:15 ==
LOC: JD.ED 22:54
DX: S01.112A Laceration without foreign body of left eyelid and periocular area, initial encounter (principal); J18.9 Pneumonia, unspecified organism; Z20.828 Contact with and (suspected) exposure to other viral communicable diseases; I25.10 Atherosclerotic heart disease of native coronary artery without angina pectoris; E78.00 Pure hypercholesterolemia, unspecified; J44.9 Chronic obstructive pulmonary disease, unspecified; G30.9 Alzheimer's disease, unspecified; R56.9 Unspecified convulsions; Z88.0 Allergy status to penicillin; Z88.1 Allergy status to other antibiotic agents; Z79.899 Other long term (current) drug therapy; W19.XXXA Unspecified fall, initial encounter; Y92.002 Bathroom of unspecified non-institutional (private) residence as the place of occurrence of the external cause
CPT/HCPCS: 36415; 70450; 71045; 80053; 81001; 83605; 83735; 84484; 85025; 85379; 85610; 85730; 87040; 93005; 96365; 96366; 96367; 99285; J0696; J3475; J3490; J7030; J7050; J7120; U0002; 93010; 99284

== ENCOUNTER 2020-11-08 10:18 | Emergency (ER) | payer MEDICARE, MEDICAID ==
[2020-11-08] MEDS ORDERED: Sodium Chloride 0.9% 10 ML Syringe FLUSH PRN ×2 (10:49→13:28)
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
[2020-11-08] MEDS ORDERED: Sodium Chloride 0.9% 1,000 ML IV SCH (11:00)
--- NOTE | 2020-11-08 11:42 | CR ---
Chest: Portable view of the chest was obtained. Comparison: Prior chest CT of 08/02/17 and chest x-ray of 10/01/17. Focal area of scarring appears to be present within the left upper chest. Lungs otherwise appear to be clear. Heart size is within normal limits. Tortuous thoracic aorta is seen. Degenerative change is noted within the right shoulder. Chronic acromioclavicular separation is seen within the left shoulder. Scattered disc space narrowing is seen within the thoracic spine. Several old healed right-sided rib fractures are noted. Impression: 1. Slight scarring. 2. Other chronic findings as noted above. 3. Nothing acute is otherwise seen on portable chest x-ray. Diagnostic code #2
[2020-11-08] MEDS ORDERED: Iopamidol 755 Mg/ML 100 ML Bottle IVPUSH ONE (13:28)
[2020-11-08] MEDS ORDERED: Sodium Chloride 0.9% 100 ML IV SCH (13:30)
--- NOTE | 2020-11-08 14:23 | CT ---
CT chest Technique: Multiple axial sections through the chest were obtained. Intravenous contrast was utilized. Study has been performed as a pulmonary angiogram protocol. Comparison: Prior CT chest study of 10/02/17. Findings: Pulmonary arteries are well opacified. No filling defects are seen to indicate pulmonary embolism. Thoracic aorta shows atherosclerotic calcification with no aneurysm. Several scattered small lymph nodes are seen within the mediastinum which are normal. There is mild diffuse coronary artery calcification seen. No pericardial thickening is seen. Cyst is noted within the right kidney measuring 2.3 cm. Partially visualized abdominal aortic stent is present. Lung window settings were reviewed. 1.0 cm nodule is noted within the left upper chest which is stable from prior chest CT. Scarring is noted within the left upper lung which is stable from prior chest CT. Mild interstitial change is seen within both lung bases as well as within the right middle lobe. These are increased from prior study and are suspicious for pulmonary fibrosis or, less likely, small areas of pneumonia. Bone window settings were reviewed which show numerous right-sided rib fractures. One lower rib fracture appears to be incompletely healed. Mild scattered degenerative change is noted within the spine. Impression: 1. No findings of pulmonary embolism. 2. Coronary artery calcification is seen. 3. Findings within the abdomen which are felt to be chronic. Right-sided rib fractures are noted and are felt to be chronic, one of these appears incompletely healed. 4. Diffuse emphysematous change is present. Stable nodule within the left upper chest with focal parenchymal scarring. Additional interstitial change is seen within the right middle lobe and within both lung bases and has the appearance of interval change of pulmonary fibrosis or, less likely, small areas of pneumonia. Diagnostic code #3
[2020-11-08] MEDS ORDERED: Famotidine 20 MG/2 ML SDV IVPUSH PRN (15:52)
[2020-11-08] MEDS ORDERED: methylPREDNISolone Sodium Succinate 125 MG/2 ML SDV IVPUSH PRN (15:52)
[2020-11-08] MEDS ORDERED: diphenhydrAMINE 50 MG/ML SDV IVPUSH PRN (15:52)
[2020-11-08] MEDS ORDERED: EPINEPHrine 1 MG/ML SDV IM PRN (15:52)
[2020-11-08] MEDS ORDERED: Sodium Chloride 0.9% 10 ML Syringe FLUSH SCH (16:00)
[2020-11-08] MEDS ORDERED: Bamlanivimab 700 MG, ETESEVIMAB 1,400 MG in Sodium Chloride 0.9% 100 ML IV ONE (16:15)
[2020-11-08] MEDS ORDERED: Dexamethasone 4 MG Tab PO ONE (17:58)
[2020-11-08 18:02] VITALS: BP 127/98; PULSE 68
== END 2020-11-08 18:50 | disposition home or self-care (01) ==
LOC: JD.ED 10:18
DX: U07.1 COVID-19 (principal); J44.9 Chronic obstructive pulmonary disease, unspecified; R09.02 Hypoxemia; I25.10 Atherosclerotic heart disease of native coronary artery without angina pectoris; E78.00 Pure hypercholesterolemia, unspecified; G30.9 Alzheimer's disease, unspecified; F02.80 Dementia in other diseases classified elsewhere, unspecified severity, without behavioral disturbance, psychotic disturbance, mood disturbance, and anxiety; Z88.0 Allergy status to penicillin; Z88.1 Allergy status to other antibiotic agents; Z79.82 Long term (current) use of aspirin; Z79.899 Other long term (current) drug therapy
CPT/HCPCS: 36415; 36600; 71045; 71275; 80053; 82803; 83880; 85025; 85379; 86140; 93005; 99285; J7030; J8540; M0245; Q0245; Q9967